=== PATIENT | female | born 1970 | race Caucasian/White ===

== ENCOUNTER → 2020-04-26 18:33 | Outpatient (CLI) | payer OTHER, SELFPAY ==
--- NOTE | 2020-04-26 | DI.MRI.S_ITS ---
PROCEDURE: MR BRAIN (IAC) WWO CON INDICATIONS: Headache TECHNIQUE: Noncontrast sagittal T1 spin echo, axial FLAIR, axial gradient echo, axial diffusion and ADC through the brain. Axial thin-slice 3D CISS, coronal TruFISP, axial T1 spin echo with fat saturation through the internal auditory canals. After the administration of contrast, thin slice axial and coronal T1 spin echo with fat saturation through the internal auditory canals, and axial T1 spin echo with fat saturation through the brain. COMPARISON: None. FINDINGS: Image quality: Excellent. Cerebellopontine angles: No cerebellopontine angle masses. Inner ear structures appear normally formed. No suspicious enhancement in the internal auditory canal or along the course of the 7th cranial nerve. CSF spaces: Ventricles are normal in size and shape. No extra-axial fluid collections. Basal cisterns are patent. Brain: No intracranial bleeds or mass effects. Rader-white matter interface is intact. No abnormal intracranial enhancement. Diffusion weighted images demonstrate no acute ischemic insults. Brainstem appears normal. Right cerebellar tonsils project approximately 11 millimeters in left cerebellar tonsils project approximately 6 millimeters below the basion-opisthion line. Visualized cervical spinal cord is normal in appearance without evidence of syrinx. Normal intravascular flow voids are present. Skull and face: Calvarial marrow signal is normal. Orbits appear normal. Sinuses: Sinuses and mastoids are clear. IMPRESSION: 1. No abnormal intracranial mass or mass effect. 2. No suspicious postcontrast enhancement. 3. Chiari I malformation. Dictated by: Karen Nath MD, PhD on 04/27/2020 at 13:01 Approved by: Karen Nath MD, PhD on 04/27/2020 at 13:06
== END ==
PROVIDERS: PCP Family Medicine; Referring Provider Family Medicine; Visit Provider Family Medicine
DX: R51 Headache (principal); G93.5 Compression of brain
CPT/HCPCS: 70553; A9579

== ENCOUNTER → 2021-04-01 10:28 | Outpatient (CLI) | payer OTHER, SELFPAY ==
[2021-04-01 11:17] LABS: COVID19 -Nasal RAPID Negative (Negative)
== END ==
PROVIDERS: PCP Family Medicine; Visit Provider Surgery
DX: Z20.822 Contact with and (suspected) exposure to COVID-19 (principal)
CPT/HCPCS: 87635; C9803

== ENCOUNTER 2021-04-04 06:33 | Day surgery (SDC) | payer OTHER, SELFPAY ==
[2021-04-04 07:10] VITALS: BP 114/74; PULSE 71; RESP 16; TEMP 36.3; O2SAT 100; BMI 28.3
[2021-04-04] MEDS: LACTATED RINGERS 1,000 ML 200 ML IV (07:30)
--- NOTE | 2021-04-04 07:42 | PM.HP.1 ---
History of Present Illness History of Present Illness Date Patient Seen: 04/04/21 Time Patient Seen: 07:42 Chief complaint: SDC Narrative: The patient presents for colorectal sreening. They have never had any previous examination for such. No personal or family history of colon cancer. On further history denies any recent gastrointestinal symptoms. No nausea, vomiting, abdominal pain, loss of appetite, unexplained weight loss, change in bowel habits, diarrhea, constipation, melena, hematochezia, or bright red blood per rectum. Patient History Family & Social History Social History: household members spouse Tobacco & Substance use: Smoking Status Never smoker alcohol intake current alcohol intake frequency 3 or more drinks per day Substance Use Type does not use Meds Home Medications and Allergies Allergies Allergy/AdvReac Type Severity Reaction Status Date / Time nitrofurantoin AdvReac Verified 04/04/21 07:07 [From Macrobid] Review of Systems Review of Systems ROS: Yes All systems reviewed with the patient and are negative except as otherwise documented Exam Vital Signs (past 8 hours): - 04/04/21 07:10 Temperature 97.4 F L Pulse Rate 71 Respiratory Rate 16 Blood Pressure 114/74 Pulse Oximetry 100 Oxygen Delivery Method Room Air Narrative Exam Narrative: GENERAL-well developed adult female, no acute distress HEENT-no scleral icterus, hearing intact NECK-no JVD, trachea midline CVS- regular rate, no peripheral edema RESP-unlabored respiratory effort, no audible wheezing GI-soft, nontender nondistended MSK-no cyanosis or clubbing, extremities without deformity SKIN-warm, dry NEURO-alert and oriented, no focal deficits PYSCH-Appropriate mood and affect Assessment & Plan Assessment & Plan narrative: The patient requires colorectal screening and colonoscopy is recommended. Technical details were discussed. Risks, benefits, alternatives explained. Risks including but not limited to myocardial infarction, aspiration, bleeding, pain, missed lesion, incomplete examination, need for further radiographic studies, colonic perforation, and need for major abdominal surgery were discussed. All questions were answered to their satisfaction, and they are in agreement with this plan.
[2021-04-04] MEDS: fentaNYL 250 MCG/5 ML INJ IV (07:54)
[2021-04-04] MEDS: MIDAZOLAM 5 MG/5 ML VIAL IV (07:55)
[2021-04-04 08:10] VITALS: BP 104/64; PULSE 64; RESP 10; TEMP 36.2; O2SAT 96
--- NOTE | 2021-04-04 08:10 | PM.OP.ENDO ---
Operative Date/Time/Diagnoses Date of procedure: 04/04/21 Time of procedure: 08:10 Pre-op diagnosis: Screening colonoscopy Post-op diagnosis: same Procedure & Clinicians Study performed: Colonoscopy Same procedure as scheduled: Yes Indications: Screening Surgeon: Vidal Mitchell Procedure Notes Procedure in detail: Medications: Conscious sedation using 6 mg IV midazolam and 150 mcg IV of fentanyl The history and physical was performed/updated and the patient is ASA class is 1. The procedure was discussed in detail with the patient. Potential risks complications including infection, bleeding, missed diagnosis, perforation, need for surgery, and were explained. Their questions were answered and informed consent was obtained. Patient was brought to the procedure room and placed standard monitoring equipment. The patient's vital signs were monitored continuously throughout the entire procedure. Prior to starting time-out was performed. The patient was placed in the left lateral recumbent position. Procedural sedation was administered. Examination began with a thorough inspection of the perianal area there was no evidence of fissures, fistulae, external hemorrhoids or cutaneous malignancy. The colonoscopy scope was then placed into the anal canal and was advanced to the cecum, which was identified by the ileocecal valve, the appendiceal orifice and the confluence of the taenia. The scope was then slowly withdrawn examining colon thoroughly in all directions, irrigating it of any residual stool. 1. No masses polyps 2. Normal healthy appearing colon The patient tolerated the procedure well. They will be discharged once criteria are met. The prep was of good/excellent quality. The withdrawl time was 7 minutes. The sedation time was 18 minutes. Specimen(s): none sent Complications: none Impression: Normal colonoscopy Post-procedure Recommendations: Colonscopy in 10 years Disposition: same day surgery
[2021-04-04 08:15] VITALS: BP 99/60; PULSE 83; RESP 12; O2SAT 97
[2021-04-04 08:24] VITALS: BP 90/50; PULSE 74; RESP 13; O2SAT 97
[2021-04-04 08:33] VITALS: BP 106/69; PULSE 71; RESP 14; TEMP 36.4; O2SAT 98
== END 2021-04-04 08:50 | disposition home or self-care (01) ==
PROVIDERS: PCP Family Medicine; Referring Provider Surgery; Visit Provider Surgery
PROC: 0DJD8ZZ Inspection of Lower Intestinal Tract, Via Natural or Artificial Opening Endoscopic (ICD-10-PCS; CPT 45378; principal; 2021-04-04 07:45)
DX: Z12.11 Encounter for screening for malignant neoplasm of colon (principal)
CPT/HCPCS: 45378; 99152; J2250; J3010

== ENCOUNTER 2021-10-06 07:30 | Outpatient (RCR) | payer OTHER, SELFPAY ==
--- NOTE | 2021-07-27 11:08 | PT.OIE ---
Current Diagnoses Pain in left shoulder (07/27/21) Visit Care Team Role Provider Type Yeimy Crystal DO Attending Provider Non-Staff Family Provider Primary Care Provider Referring Provider Specialty: Medical Address: [address] [place] [address], [facility] Email: Physical Therapy Initial Evaluation PT-OP-A Visit Information Start: 07/21/21 15:56 Freq: Status: Active Protocol: Document 07/27/21 07:30 AMB (Rec: 07/31/21 10:48 AMB [email or web address]) Out-Patient Physical Therapy Visit Information Visit Information Visit Type Initial Evaluation Visit Start Time 07:30 Visit Stop Time 08:15 Total Visit Minutes 45 Visit Number 1 PT-OP-B Current Condition Start: 07/21/21 15:56 Freq: Status: Active Protocol: Document 07/27/21 07:30 AMB (Rec: 07/27/21 07:41 AMB [id number]) Current Condition History of Current Condition Onset Date January 2021 Current Complaints Left shoulder pain History of Current Condition In January, Carly was doing a lot of yardwork and the left arm pain started and hasn't really been getting better. She tries to sleep on her back because sleeping on the side, reaching to the side and behind are all painful. Pain always a 2/10, then with activity increases to 5/10. Pain is burning/ can be sharp. Denies n/t or pain with moving neck. Treatment Goals Patient/Caregiver Goals Be able to return to normal activities without shoulder pain Prior Functional Status Baseline Function- ADL's Independent Baseline Function- Mobility Independent PT-OP-C Subjective Start: 07/21/21 15:56 Freq: Status: Active Protocol: Document 07/27/21 07:30 AMB (Rec: 07/31/21 10:55 AMB [email or web address]) Patient Questionnaires Quick Dash- Upper Extremity Quick Dash UE Score 25 Quick Dash UE Impairment 20 to 39% Impaired (Score 20- 39) OP-PT Pain Assessment Comments Pain Comments Left shoulder and into the uper arm especially at night PT-OP-J Posture/Palpation/Skin Start: 07/21/21 15:56 Freq: Status: Active Protocol: Document 07/27/21 07:30 AMB (Rec: 07/31/21 10:55 AMB [email or web address]) Posture Evaluation Comments Posture Comments Mild forward shoulders Palpation Assessment Location L shoulder Palpation Details Pain at medial and lateral border of scapula, and over long head of biceps tendon PT-OP-K Range of Motion Start: 07/21/21 15:56 Freq: Status: Active Protocol: Document 07/27/21 07:30 AMB (Rec: 07/31/21 10:55 AMB [email or web address]) Shoulder Goniometric Range of Motion Shoulder Right Active Shoulder ROM WFL Yes Testing Position Sitting Left Active Testing Position Sitting Flexion 150 Extension 35 Abduction 95 External Rotation at 45 degrees 5 Abduction Internal Rotation Behind Back (text) sacrum Comments pain wiht abduction and extension PT-OP-L Special Tests Start: 07/21/21 15:56 Freq: Status: Active Protocol: Document 07/27/21 07:30 AMB (Rec: 07/31/21 10:55 AMB [email or web address]) Special Tests Shoulder Special Tests Empty Can Test Results - Lift-Off Rotator Cuff Comments reduced range of motion, but able to perform Hornblowers Sign Test Results - PT-OP-M Strength Start: 07/21/21 15:56 Freq: Status: Active Protocol: Document 07/27/21 07:30 AMB (Rec: 07/31/21 10:55 AMB [email or web address]) Shoulder Strength Shoulder Manual Muscle Testing Left Flexion 4+ Good+ Extension 4 Good Abduction (C5) 4 Good External Rotation 4 Good Internal Rotation 4+ Good+ PT-OP-Q Treatments Start: 07/21/21 15:56 Freq: Status: Active Protocol: Document 07/27/21 07:30 AMB (Rec: 07/31/21 10:55 AMB [email or web address]) Therapeutic Exercises Supine Exercises AAROM Supine Exercise Name with wand Comments flexion Standing Exercises isometrics Side left Comments extension and IR PT-OP-T Assessment and Plan Start: 07/21/21 15:56 Freq: Status: Active Protocol: Document 07/27/21 07:30 AMB (Rec: 07/31/21 11:08 AMB [email or web address]) Physical Therapy Assessment Rehab Potential Rehabilitation Potential Good Evaluation Complexity Number of Personal Factors/Comorbidities 0 Number of Body Systems Impaired 4 or More Clinical Presentation at Evaluation Stable Impairments Impairments Functional Activities,Pain,ROM ,Strength Goals Four Impairment HEP Short Term Goal (STG) Carly will be independent and consistent with a strengthening and ROM HEP. STG Duration 4 weeks Two Impairment pain Short Term Goal (STG) Carly will do all upper body dressing without an increase in pain. STG Duration 4 weeks Jail Goal (LTG) Carly will roll over in bed without waking due to pain. LTG Duration 8 weeks One Impairment ROM Short Term Goal (STG) Carly will improve her left shoulder AROM to 170 degrees in flexion. STG Duration 4 weeks Jail Goal (LTG) Carly will improve her left shoulder AROM to 140 degrees in abduction. LTG Duration 8 weeks Assessment Summary Assessment Carly attends physical therapy with left shoulder pain that has not improved since injury 6 months ago. She presents with restricted ROM especially in abduction and ER and pain when moving the arm away from her body. Given her presentation rotator cuff vs biceps tendon vs labral pathology should be considered. She will benefit from physical therapy to instruct her in a gentle ROM and strengthening program so she can return to her prior level of function. Physical Therapy Plan Frequency and Duration Frequency of Treatment 2x/Week Duration of Treatment 8 weeks Plan of Care Start Date 07/27/21 Plan of Care End Date 10/05/21 Therapeutic Interventions Therapeutic Interventions Home Exercise Program,Joint Mobilizations,Manual Therapy, Neuromuscular Re-education, Self-Care/Home Management,Soft Tissue Mobilization, Therapeutic Activities, Therapeutic Exercises Modalities Cold Pack/Ice Massage,Electric Stimulation,Hot Packs, Ultrasound Next Visit Focus/Plan Next Note Type Treatment Note Next Visit Plan Progress isometrics and AAROM HEP
--- NOTE | 2021-07-27 11:09 | PT.OPPOC ---
Physical, Occupational & Speech Therapy At [facility] Current Diagnoses Pain in left shoulder (07/27/21) Visit Care Team Role Provider Type Yeimy Crystal DO Attending Provider Non-Staff Family Provider Primary Care Provider Referring Provider Specialty: Medical Address: [address] [place] [address], [id number] Email: Plan Of Care PT-OP-T Assessment and Plan Start: 07/21/21 15:56 Freq: Status: Active Protocol: Document 07/27/21 07:30 AMB (Rec: 07/31/21 11:08 AMB [email or web address]) Physical Therapy Assessment Rehab Potential Rehabilitation Potential Good Evaluation Complexity Number of Personal Factors/Comorbidities 0 Number of Body Systems Impaired 4 or More Clinical Presentation at Evaluation Stable Impairments Impairments Functional Activities,Pain,ROM ,Strength Goals Four Impairment HEP Short Term Goal (STG) Carly will be independent and consistent with a strengthening and ROM HEP. STG Duration 4 weeks Two Impairment pain Short Term Goal (STG) Carly will do all upper body dressing without an increase in pain. STG Duration 4 weeks Group Home Goal (LTG) Carly will roll over in bed without waking due to pain. LTG Duration 8 weeks One Impairment ROM Short Term Goal (STG) Carly will improve her left shoulder AROM to 170 degrees in flexion. STG Duration 4 weeks Group Home Goal (LTG) Carly will improve her left shoulder AROM to 140 degrees in abduction. LTG Duration 8 weeks Assessment Summary Assessment Carly attends physical therapy with left shoulder pain that has not improved since injury 6 months ago. She presents with restricted ROM especially in abduction and ER and pain when moving the arm away from her body. Given her presentation rotator cuff vs biceps tendon vs labral pathology should be considered. She will benefit from physical therapy to instruct her in a gentle ROM and strengthening program so she can return to her prior level of function. Physical Therapy Plan Frequency and Duration Frequency of Treatment 2x/Week Duration of Treatment 8 weeks Plan of Care Start Date 07/27/21 Plan of Care End Date 10/05/21 Therapeutic Interventions Therapeutic Interventions Home Exercise Program,Joint Mobilizations,Manual Therapy, Neuromuscular Re-education, Self-Care/Home Management,Soft Tissue Mobilization, Therapeutic Activities, Therapeutic Exercises Modalities Cold Pack/Ice Massage,Electric Stimulation,Hot Packs, Ultrasound Next Visit Focus/Plan Next Note Type Treatment Note Next Visit Plan Progress isometrics and AAROM HEP Plan of Care Dates Plan of Care Start Date 07/27/21 Plan of Care End Date 10/05/21 Electronically Signed by: Rachael Henson, PT 07/31/21 [id number] Please Sign and Return: I have reviewed this Plan of Care and certify that the skilled therapy services above are required to meet the patient?s needs. Physician Signature Date Printed Name and Credentials Clinical Instructor Signature Printed Name and Credentials
--- NOTE | 2021-08-04 09:17 | PT.OTN ---
Current Diagnoses Pain in left shoulder (08/04/21) Physical Therapy Treatment Note PT-OP-A Visit Information Start: 07/21/21 15:56 Freq: Status: Active Protocol: Document 08/04/21 07:30 AMB (Rec: 08/04/21 09:17 AMB [email or web address]) Out-Patient Physical Therapy Visit Information Visit Information Visit Type Treatment Note Visit Start Time 07:30 Visit Stop Time 08:25 Total Visit Minutes 55 Visit Number 2 PT-OP-B Current Condition Start: 07/21/21 15:56 Freq: Status: Active Protocol: Document 07/27/21 07:30 AMB (Rec: 07/27/21 07:41 AMB [id number]) Current Condition History of Current Condition Onset Date January 2021 Current Complaints Left shoulder pain History of Current Condition In January, Carly was doing a lot of yardwork and the left arm pain started and hasn't really been getting better. She tries to sleep on her back because sleeping on the side, reaching to the side and behind are all painful. Pain always a 2/10, then with activity increases to 5/10. Pain is burning/ can be sharp. Denies n/t or pain with moving neck. Treatment Goals Patient/Caregiver Goals Be able to return to normal activities without shoulder pain Prior Functional Status Baseline Function- ADL's Independent Baseline Function- Mobility Independent PT-OP-C Subjective Start: 07/21/21 15:56 Freq: Status: Active Protocol: Document 08/04/21 07:30 AMB (Rec: 08/04/21 09:17 AMB [email or web address]) OP-PT Subjective Patient Comments Patient Comments Taylor states the flexion AAROM is feeling good. isometrics are a bit painful. PT-OP-J Posture/Palpation/Skin Start: 07/21/21 15:56 Freq: Status: Active Protocol: Document 07/27/21 07:30 AMB (Rec: 07/31/21 10:55 AMB [email or web address]) Posture Evaluation Comments Posture Comments Mild forward shoulders Palpation Assessment Location L shoulder Palpation Details Pain at medial and lateral border of scapula, and over long head of biceps tendon PT-OP-K Range of Motion Start: 07/21/21 15:56 Freq: Status: Active Protocol: Document 07/27/21 07:30 AMB (Rec: 07/31/21 10:55 AMB [email or web address]) Shoulder Goniometric Range of Motion Shoulder Right Active Shoulder ROM WFL Yes Testing Position Sitting Left Active Testing Position Sitting Flexion 150 Extension 35 Abduction 95 External Rotation at 45 degrees 5 Abduction Internal Rotation Behind Back (text) sacrum Comments pain wiht abduction and extension PT-OP-L Special Tests Start: 07/21/21 15:56 Freq: Status: Active Protocol: Document 07/27/21 07:30 AMB (Rec: 07/31/21 10:55 AMB [email or web address]) Special Tests Shoulder Special Tests Empty Can Test Results - Lift-Off Rotator Cuff Comments reduced range of motion, but able to perform Hornblowers Sign Test Results - PT-OP-M Strength Start: 07/21/21 15:56 Freq: Status: Active Protocol: Document 07/27/21 07:30 AMB (Rec: 07/31/21 10:55 AMB [email or web address]) Shoulder Strength Shoulder Manual Muscle Testing Left Flexion 4+ Good+ Extension 4 Good Abduction (C5) 4 Good External Rotation 4 Good Internal Rotation 4+ Good+ PT-OP-Q Treatments Start: 07/21/21 15:56 Freq: Status: Active Protocol: Document 08/04/21 07:30 AMB (Rec: 08/04/21 09:17 AMB [email or web address]) Therapeutic Exercises Supine Exercises AAROM Supine Exercise Name with wand Reps/Minutes 10 min Comments flexion, abduction , ER Sidelying Exercises 2 Sidelying Exercise Name abduction Reps/Minutes 2x10 Comments 0-45 degrees 1 Sidelying Exercise Name ER Reps/Minutes 2x10 Comments from abdomen to neutral Sitting Exercises 1 Sitting Exercise Name biceps curls Resistance 3-5# Reps/Minutes 2x10 Manual Therapy Treatment Soft Tissue Mobilization 1 Body Location L scapula Mobilization Type Myofascial Release,Sustained Pressure Intensity/Depth Moderate Body Position Supine PT-OP-T Assessment and Plan Start: 07/21/21 15:56 Freq: Status: Active Protocol: Document 08/04/21 07:30 AMB (Rec: 08/04/21 09:17 AMB [email or web address]) Physical Therapy Assessment Goals Four Impairment HEP Short Term Goal (STG) Carly will be independent and consistent with a strengthening and ROM HEP. STG Duration 4 weeks Two Impairment pain Short Term Goal (STG) Carly will do all upper body dressing without an increase in pain. STG Duration 4 weeks Metal Tester Goal (LTG) Carly will roll over in bed without waking due to pain. LTG Duration 8 weeks One Impairment ROM Short Term Goal (STG) Carly will improve her left shoulder AROM to 170 degrees in flexion. STG Duration 4 weeks Metal Tester Goal (LTG) Carly will improve her left shoulder AROM to 140 degrees in abduction. LTG Duration 8 weeks Assessment Summary Assessment Taylor is doing well with flexion, but has pain with abduction and ER- worst with ER, IR is more comfortable, but can tolerate ER to neutral . Physical Therapy Plan Next Visit Focus/Plan Next Visit Plan Follow up on AAROM and AROM ( ER), can add abduction AROM if tolerated in sidelying
--- NOTE | 2021-08-11 08:54 | PT.OTN ---
Current Diagnoses Pain in left shoulder (08/11/21) Physical Therapy Treatment Note PT-OP-A Visit Information Start: 07/21/21 15:56 Freq: Status: Active Protocol: Document 08/11/21 07:30 AMB (Rec: 08/11/21 08:38 AMB [id number]) Out-Patient Physical Therapy Visit Information Visit Information Visit Type Treatment Note Visit Start Time 07:30 Visit Stop Time 08:15 Total Visit Minutes 45 Visit Number 3 PT-OP-B Current Condition Start: 07/21/21 15:56 Freq: Status: Active Protocol: Document 07/27/21 07:30 AMB (Rec: 07/27/21 07:41 AMB [id number]) Current Condition History of Current Condition Onset Date January 2021 Current Complaints Left shoulder pain History of Current Condition In January, Carly was doing a lot of yardwork and the left arm pain started and hasn't really been getting better. She tries to sleep on her back because sleeping on the side, reaching to the side and behind are all painful. Pain always a 2/10, then with activity increases to 5/10. Pain is burning/ can be sharp. Denies n/t or pain with moving neck. Treatment Goals Patient/Caregiver Goals Be able to return to normal activities without shoulder pain Prior Functional Status Baseline Function- ADL's Independent Baseline Function- Mobility Independent PT-OP-C Subjective Start: 07/21/21 15:56 Freq: Status: Active Protocol: Document 08/11/21 07:30 AMB (Rec: 08/11/21 08:38 AMB [id number]) OP-PT Subjective Patient Comments Patient Comments Overall feels like she is getting stronger, but continues to have sharp pain if she weightbears through the arm like to push up from sitting. PT-OP-J Posture/Palpation/Skin Start: 07/21/21 15:56 Freq: Status: Active Protocol: Document 07/27/21 07:30 AMB (Rec: 07/31/21 10:55 AMB [email or web address]) Posture Evaluation Comments Posture Comments Mild forward shoulders Palpation Assessment Location L shoulder Palpation Details Pain at medial and lateral border of scapula, and over long head of biceps tendon PT-OP-K Range of Motion Start: 07/21/21 15:56 Freq: Status: Active Protocol: Document 07/27/21 07:30 AMB (Rec: 07/31/21 10:55 AMB [email or web address]) Shoulder Goniometric Range of Motion Shoulder Right Active Shoulder ROM WFL Yes Testing Position Sitting Left Active Testing Position Sitting Flexion 150 Extension 35 Abduction 95 External Rotation at 45 degrees 5 Abduction Internal Rotation Behind Back (text) sacrum Comments pain wiht abduction and extension PT-OP-L Special Tests Start: 07/21/21 15:56 Freq: Status: Active Protocol: Document 07/27/21 07:30 AMB (Rec: 07/31/21 10:55 AMB [email or web address]) Special Tests Shoulder Special Tests Empty Can Test Results - Lift-Off Rotator Cuff Comments reduced range of motion, but able to perform Hornblowers Sign Test Results - PT-OP-M Strength Start: 07/21/21 15:56 Freq: Status: Active Protocol: Document 07/27/21 07:30 AMB (Rec: 07/31/21 10:55 AMB [email or web address]) Shoulder Strength Shoulder Manual Muscle Testing Left Flexion 4+ Good+ Extension 4 Good Abduction (C5) 4 Good External Rotation 4 Good Internal Rotation 4+ Good+ PT-OP-Q Treatments Start: 07/21/21 15:56 Freq: Status: Active Protocol: Document 08/11/21 07:30 AMB (Rec: 08/11/21 08:38 AMB [id number]) Therapeutic Exercises Supine Exercises AAROM Supine Exercise Name with wand Reps/Minutes 10 min Comments flexion, abduction , ER Standing Exercises shldr ext t band Resistance #1 t band Reps/Minutes 2x10 t band rows Resistance #1 t band Reps/Minutes 2x10 Manual Therapy Treatment Joint Mobilizations 1 Joint AP and inferior glide Grade III Taping 1 Body Location L shoulder Type of Tape Kinesio Tape Comments Y and I to retract scapula and for GH support Manual Techniques PROM Type with distraction Comments pain with abduction, tolerated flexion, scaption well. PT-OP-T Assessment and Plan Start: 07/21/21 15:56 Freq: Status: Active Protocol: Document 08/11/21 07:30 AMB (Rec: 08/11/21 08:38 AMB [id number]) Physical Therapy Assessment Assessment Summary Assessment Taylor tolerated AROM with joint distraction well, as well as t band exercises. She was sore at the end of treatment. Physical Therapy Plan Next Visit Focus/Plan Next Note Type Treatment Note Next Visit Plan Follow up on t band rows and extension
--- NOTE | 2021-08-16 10:55 | PT.OTN ---
Current Diagnoses Pain in left shoulder (08/16/21) Physical Therapy Treatment Note PT-OP-A Visit Information Start: 07/21/21 15:56 Freq: Status: Active Protocol: Document 08/16/21 07:30 AMB (Rec: 08/16/21 08:15 AMB [id number]) Out-Patient Physical Therapy Visit Information Visit Information Visit Type Treatment Note Visit Start Time 07:30 Visit Stop Time 08:15 Total Visit Minutes 45 Visit Number 4 PT-OP-B Current Condition Start: 07/21/21 15:56 Freq: Status: Active Protocol: Document 07/27/21 07:30 AMB (Rec: 07/27/21 07:41 AMB [id number]) Current Condition History of Current Condition Onset Date January 2021 Current Complaints Left shoulder pain History of Current Condition In January, Carly was doing a lot of yardwork and the left arm pain started and hasn't really been getting better. She tries to sleep on her back because sleeping on the side, reaching to the side and behind are all painful. Pain always a 2/10, then with activity increases to 5/10. Pain is burning/ can be sharp. Denies n/t or pain with moving neck. Treatment Goals Patient/Caregiver Goals Be able to return to normal activities without shoulder pain Prior Functional Status Baseline Function- ADL's Independent Baseline Function- Mobility Independent PT-OP-C Subjective Start: 07/21/21 15:56 Freq: Status: Active Protocol: Document 08/16/21 07:30 AMB (Rec: 08/16/21 10:55 AMB [email or web address]) OP-PT Subjective Patient Comments Patient Comments Taylor states she is improving, continued shoulder pain with extension, but external rotation is coming along. PT-OP-J Posture/Palpation/Skin Start: 07/21/21 15:56 Freq: Status: Active Protocol: Document 07/27/21 07:30 AMB (Rec: 07/31/21 10:55 AMB [email or web address]) Posture Evaluation Comments Posture Comments Mild forward shoulders Palpation Assessment Location L shoulder Palpation Details Pain at medial and lateral border of scapula, and over long head of biceps tendon PT-OP-K Range of Motion Start: 07/21/21 15:56 Freq: Status: Active Protocol: Document 07/27/21 07:30 AMB (Rec: 07/31/21 10:55 AMB [email or web address]) Shoulder Goniometric Range of Motion Shoulder Right Active Shoulder ROM WFL Yes Testing Position Sitting Left Active Testing Position Sitting Flexion 150 Extension 35 Abduction 95 External Rotation at 45 degrees 5 Abduction Internal Rotation Behind Back (text) sacrum Comments pain wiht abduction and extension PT-OP-L Special Tests Start: 07/21/21 15:56 Freq: Status: Active Protocol: Document 07/27/21 07:30 AMB (Rec: 07/31/21 10:55 AMB [email or web address]) Special Tests Shoulder Special Tests Empty Can Test Results - Lift-Off Rotator Cuff Comments reduced range of motion, but able to perform Hornblowers Sign Test Results - PT-OP-M Strength Start: 07/21/21 15:56 Freq: Status: Active Protocol: Document 07/27/21 07:30 AMB (Rec: 07/31/21 10:55 AMB [email or web address]) Shoulder Strength Shoulder Manual Muscle Testing Left Flexion 4+ Good+ Extension 4 Good Abduction (C5) 4 Good External Rotation 4 Good Internal Rotation 4+ Good+ PT-OP-Q Treatments Start: 07/21/21 15:56 Freq: Status: Active Protocol: Document 08/16/21 07:30 AMB (Rec: 08/16/21 10:55 AMB [email or web address]) Therapeutic Exercises Sitting Exercises forward table stretch Sitting Exercise Name on rolling stool Reps/Minutes 30x3 cameron Sitting Exercise Name flexion, scaption, then standing IR Reps/Minutes 3 min ea direction Standing Exercises 1 Standing Exercise Name modified plank Reps/Minutes 30x3 Comments on wall then on raised plinth shldr ER t band Resistance #1 t band Reps/Minutes 1x10 shldr ext t band Resistance #1 t band Reps/Minutes 2x10 t band rows Resistance #1 t band Reps/Minutes 2x10 PT-OP-T Assessment and Plan Start: 07/21/21 15:56 Freq: Status: Active Protocol: Document 08/16/21 07:30 AMB (Rec: 08/16/21 10:55 AMB [email or web address]) Physical Therapy Assessment Assessment Summary Assessment Taylor is going to be going on vacation and is hoping to be able to swim- discussed pt thinking of trying breaststroke. Overall pt continues to be stiff/painful at end range but throughout the day can progress her range of motion. Physical Therapy Plan Next Visit Focus/Plan Next Note Type Treatment Note Next Visit Plan Current HEP: T band rows, ER, ext. Modified plank on countertop/wall, foward table stretch, AAROM with dowel.
--- NOTE | 2021-08-25 08:20 | PT.OTN ---
Current Diagnoses Pain in left shoulder (08/25/21) Physical Therapy Treatment Note PT-OP-A Visit Information Start: 07/21/21 15:56 Freq: Status: Active Protocol: Document 08/25/21 07:31 SP (Rec: 08/25/21 08:24 SP [id number]) Out-Patient Physical Therapy Visit Information Visit Information Visit Type Treatment Note Visit Note LUIS Armijo attended and provided education under direct supervision and guidance of KEVIN Giron. Visit Start Time 07:31 Visit Stop Time 08:20 Total Visit Minutes 49 Visit Number 5 Number of TILER Visits 1 PT-OP-B Current Condition Start: 07/21/21 15:56 Freq: Status: Active Protocol: Document 07/27/21 07:30 AMB (Rec: 07/27/21 07:41 AMB [id number]) Current Condition History of Current Condition Onset Date January 2021 Current Complaints Left shoulder pain History of Current Condition In January, Carly was doing a lot of yardwork and the left arm pain started and hasn't really been getting better. She tries to sleep on her back because sleeping on the side, reaching to the side and behind are all painful. Pain always a 2/10, then with activity increases to 5/10. Pain is burning/ can be sharp. Denies n/t or pain with moving neck. Treatment Goals Patient/Caregiver Goals Be able to return to normal activities without shoulder pain Prior Functional Status Baseline Function- ADL's Independent Baseline Function- Mobility Independent PT-OP-C Subjective Start: 07/21/21 15:56 Freq: Status: Active Protocol: Document 08/25/21 07:31 SP (Rec: 08/25/21 08:24 SP [id number]) OP-PT Subjective Patient Comments Patient Comments Pt. indicated that she can't put her L arm behind her back, such as reaching into the back seat of a car. Good responses to K taping, want to reapply. PT-OP-J Posture/Palpation/Skin Start: 07/21/21 15:56 Freq: Status: Active Protocol: Document 07/27/21 07:30 AMB (Rec: 07/31/21 10:55 AMB [email or web address]) Posture Evaluation Comments Posture Comments Mild forward shoulders Palpation Assessment Location L shoulder Palpation Details Pain at medial and lateral border of scapula, and over long head of biceps tendon PT-OP-K Range of Motion Start: 07/21/21 15:56 Freq: Status: Active Protocol: Document 07/27/21 07:30 AMB (Rec: 07/31/21 10:55 AMB [email or web address]) Shoulder Goniometric Range of Motion Shoulder Right Active Shoulder ROM WFL Yes Testing Position Sitting Left Active Testing Position Sitting Flexion 150 Extension 35 Abduction 95 External Rotation at 45 degrees 5 Abduction Internal Rotation Behind Back (text) sacrum Comments pain wiht abduction and extension PT-OP-L Special Tests Start: 07/21/21 15:56 Freq: Status: Active Protocol: Document 07/27/21 07:30 AMB (Rec: 07/31/21 10:55 AMB [email or web address]) Special Tests Shoulder Special Tests Empty Can Test Results - Lift-Off Rotator Cuff Comments reduced range of motion, but able to perform Hornblowers Sign Test Results - PT-OP-M Strength Start: 07/21/21 15:56 Freq: Status: Active Protocol: Document 07/27/21 07:30 AMB (Rec: 07/31/21 10:55 AMB [email or web address]) Shoulder Strength Shoulder Manual Muscle Testing Left Flexion 4+ Good+ Extension 4 Good Abduction (C5) 4 Good External Rotation 4 Good Internal Rotation 4+ Good+ PT-OP-Q Treatments Start: 07/21/21 15:56 Freq: Status: Active Protocol: Document 08/25/21 07:31 SP (Rec: 08/25/21 08:24 SP [id number]) Therapeutic Exercises Sidelying Exercises 2 Sidelying Exercise Name abduction Side left Reps/Minutes 2x10 Comments 0-45 degrees AROM, 80 deg AAROM 1 Sidelying Exercise Name ER Side left Resistance AROM Reps/Minutes 2x10 Comments from abdomen to neutral Sitting Exercises cameron Sitting Exercise Name flexion, scaption Side left Resistance AROM Equipment Used Overhead cameron Comments Pt. limited to about 100 flexion, but has approx 140 scaption Standing Exercises Pendulum Side left Equipment Used R UE supported Reps/Minutes 1 minute Comments AP, lateral, clockwise, counter clockwise Wall slides flex/ scaption Standing Exercise Name reviewed HEP Side left Resistance AROM Equipment Used Wall Reps/Minutes 3x30 flexion, 1x 30 scaption Comments Cues for hand crawling up wall , scaption within painfree-min discomft range shldr IR towel stretch Side left Resistance AROM Equipment Used towel- initiated across pelvis Reps/Minutes 5x 20 Comments Cues to stretch lateral, then superiorly, to keep shldr level shldr ext t band Side bilateral Resistance L1 Reps/Minutes 10x Comments Cues for straight elbows t band rows Side bilateral Resistance L1 >L2>L3 TB Reps/Minutes 5x L1, 10x L2, x5 L3 Comments cues for distance and tensioning, core stab, squeezing scapulae together, Manual Therapy Treatment Soft Tissue Mobilization 1 Body Location L proximal bicep tendon, RTC tendons Mobilization Type Myofascial Release,Rolling, Sustained Pressure Intensity/Depth Moderate Body Position Sitting Comments pre cameron Joint Mobilizations 1 Joint L GH Jt Direction AP glides Grade II Body Position Sitting Taping 1 Body Location L shoulder Type of Tape Kinesio Tape Skin Inspection intact, normal color Comments Y and I to retract scapula and for GH support PT-OP-T Assessment and Plan Start: 07/21/21 15:56 Freq: Status: Active Protocol: Document 08/25/21 07:31 SP (Rec: 08/25/21 08:24 SP [id number]) Physical Therapy Assessment Goals Four Impairment HEP Short Term Goal (STG) Carly will be independent and consistent with a strengthening and ROM HEP. STG Duration 4 weeks Two Impairment pain Short Term Goal (STG) Carly will do all upper body dressing without an increase in pain. STG Duration 4 weeks Surgical Tech Goal (LTG) Carly will roll over in bed without waking due to pain. LTG Duration 8 weeks One Impairment ROM Short Term Goal (STG) Carly will improve her left shoulder AROM to 170 degrees in flexion. STG Duration 4 weeks Half-Way Goal (LTG) Carly will improve her left shoulder AROM to 140 degrees in abduction. LTG Duration 8 weeks Assessment Summary Assessment Pt improved in GH retracted/ depress, good understanding during HEP within painfree range. Improved in L shld IR with use of towel, wall slides with cues for scap relax as range increases with painfree- low discomfort tolerance to decrease compensations. Introduced pendulums for decreased discomfort with good response. Good muscle tiring sidelying L shld ER AROM cued within painfree range. Good response to K taping for GH proximal approximation with cues for self reapplication shown while on vacation next week. Physical Therapy Plan Frequency and Duration Frequency of Treatment 2x/Week Duration of Treatment 8 weeks Plan of Care Start Date 07/27/21 Plan of Care End Date 10/05/21 Therapeutic Interventions Therapeutic Interventions Home Exercise Program,Joint Mobilizations,Manual Therapy, Neuromuscular Re-education, Self-Care/Home Management,Soft Tissue Mobilization, Therapeutic Activities, Therapeutic Exercises Modalities Cold Pack/Ice Massage,Electric Stimulation,Hot Packs, Ultrasound Next Visit Focus/Plan Next Note Type Treatment Note Next Visit Plan Current HEP: stand: pendulum, T band rows, ext, wall slides, sidelying ER. Modified plank on countertop/wall, forward table stretch, AAROM with dowel ER and IR behind back.
--- NOTE | 2021-09-06 09:42 | PT.OTN ---
Current Diagnoses Pain in left shoulder (09/06/21) Physical Therapy Treatment Note PT-OP-A Visit Information Start: 07/21/21 15:56 Freq: Status: Active Protocol: Document 09/06/21 07:30 AMB (Rec: 09/06/21 09:42 AMB [email or web address]) Out-Patient Physical Therapy Visit Information Visit Information Visit Type Treatment Note Visit Start Time 07:30 Visit Stop Time 08:10 Total Visit Minutes 40 Visit Number 6 PT-OP-B Current Condition Start: 07/21/21 15:56 Freq: Status: Active Protocol: Document 07/27/21 07:30 AMB (Rec: 07/27/21 07:41 AMB [id number]) Current Condition History of Current Condition Onset Date January 2021 Current Complaints Left shoulder pain History of Current Condition In January, Carly was doing a lot of yardwork and the left arm pain started and hasn't really been getting better. She tries to sleep on her back because sleeping on the side, reaching to the side and behind are all painful. Pain always a 2/10, then with activity increases to 5/10. Pain is burning/ can be sharp. Denies n/t or pain with moving neck. Treatment Goals Patient/Caregiver Goals Be able to return to normal activities without shoulder pain Prior Functional Status Baseline Function- ADL's Independent Baseline Function- Mobility Independent PT-OP-C Subjective Start: 07/21/21 15:56 Freq: Status: Active Protocol: Document 09/06/21 07:30 AMB (Rec: 09/06/21 09:42 AMB [email or web address]) OP-PT Subjective Patient Comments Patient Comments Pt was able to swim (modifed) while on vacation and that felt really good. PT-OP-J Posture/Palpation/Skin Start: 07/21/21 15:56 Freq: Status: Active Protocol: Document 07/27/21 07:30 AMB (Rec: 07/31/21 10:55 AMB [email or web address]) Posture Evaluation Comments Posture Comments Mild forward shoulders Palpation Assessment Location L shoulder Palpation Details Pain at medial and lateral border of scapula, and over long head of biceps tendon PT-OP-K Range of Motion Start: 07/21/21 15:56 Freq: Status: Active Protocol: Document 07/27/21 07:30 AMB (Rec: 07/31/21 10:55 AMB [email or web address]) Shoulder Goniometric Range of Motion Shoulder Right Active Shoulder ROM WFL Yes Testing Position Sitting Left Active Testing Position Sitting Flexion 150 Extension 35 Abduction 95 External Rotation at 45 degrees 5 Abduction Internal Rotation Behind Back (text) sacrum Comments pain wiht abduction and extension PT-OP-L Special Tests Start: 07/21/21 15:56 Freq: Status: Active Protocol: Document 07/27/21 07:30 AMB (Rec: 07/31/21 10:55 AMB [email or web address]) Special Tests Shoulder Special Tests Empty Can Test Results - Lift-Off Rotator Cuff Comments reduced range of motion, but able to perform Hornblowers Sign Test Results - PT-OP-M Strength Start: 07/21/21 15:56 Freq: Status: Active Protocol: Document 07/27/21 07:30 AMB (Rec: 07/31/21 10:55 AMB [email or web address]) Shoulder Strength Shoulder Manual Muscle Testing Left Flexion 4+ Good+ Extension 4 Good Abduction (C5) 4 Good External Rotation 4 Good Internal Rotation 4+ Good+ PT-OP-Q Treatments Start: 07/21/21 15:56 Freq: Status: Active Protocol: Document 09/06/21 07:30 AMB (Rec: 09/06/21 09:42 AMB [email or web address]) Therapeutic Exercises Sidelying Exercises open book Reps/Minutes 10 2 Sidelying Exercise Name abduction Side left Reps/Minutes 2x10 Comments 0-100 1 Sidelying Exercise Name ER Side left Resistance AROM Reps/Minutes 2x10 Comments from abdomen to neutral Standing Exercises 2 Standing Exercise Name standing pec stretch Comments modifying level of abduction for comfort t band rows Side bilateral Resistance L3 TB Reps/Minutes x5 L3 Comments cues for distance and tensioning, core stab, squeezing scapulae together, Manual Therapy Treatment Soft Tissue Mobilization 1 Body Location L proximal bicep tendon, RTC tendons Mobilization Type Myofascial Release,Rolling, Sustained Pressure Intensity/Depth Moderate Body Position Sidelying Joint Mobilizations 2 Joint scapulothoracic Comments all planes 1 Joint L GH Jt Direction AP glides Grade II Body Position Supine PT-OP-T Assessment and Plan Start: 07/21/21 15:56 Freq: Status: Active Protocol: Document 09/06/21 07:30 AMB (Rec: 09/06/21 09:42 AMB [email or web address]) Physical Therapy Assessment Assessment Summary Assessment Carly did well with new exercises, came in with 80 degrees of abduction and left with 113 degrees. Encouraged stretching throughout the day so that she can keep range and not stiffen as much. Physical Therapy Plan Next Visit Focus/Plan Next Note Type Treatment Note Next Visit Plan Current HEP: stand: pendulum, T band rows, ext, wall slides, sidelying ER. Modified plank on countertop/wall, forward table stretch, AAROM with dowel ER and IR behind back, open book, standing pec stretch.
--- NOTE | 2021-09-13 16:00 | PT.OTN ---
Current Diagnoses Pain in left shoulder (09/13/21) Physical Therapy Treatment Note PT-OP-A Visit Information Start: 07/21/21 15:56 Freq: Status: Active Protocol: Document 09/13/21 07:30 AMB (Rec: 09/13/21 16:00 AMB [email or web address]) Out-Patient Physical Therapy Visit Information Visit Information Visit Type Treatment Note Visit Start Time 07:30 Visit Stop Time 08:15 Total Visit Minutes 45 Visit Number 7 PT-OP-B Current Condition Start: 07/21/21 15:56 Freq: Status: Active Protocol: Document 07/27/21 07:30 AMB (Rec: 07/27/21 07:41 AMB [id number]) Current Condition History of Current Condition Onset Date January 2021 Current Complaints Left shoulder pain History of Current Condition In January, Carly was doing a lot of yardwork and the left arm pain started and hasn't really been getting better. She tries to sleep on her back because sleeping on the side, reaching to the side and behind are all painful. Pain always a 2/10, then with activity increases to 5/10. Pain is burning/ can be sharp. Denies n/t or pain with moving neck. Treatment Goals Patient/Caregiver Goals Be able to return to normal activities without shoulder pain Prior Functional Status Baseline Function- ADL's Independent Baseline Function- Mobility Independent PT-OP-C Subjective Start: 07/21/21 15:56 Freq: Status: Active Protocol: Document 09/06/21 07:30 AMB (Rec: 09/06/21 09:42 AMB [email or web address]) OP-PT Subjective Patient Comments Patient Comments Pt was able to swim (modifed) while on vacation and that felt really good. PT-OP-J Posture/Palpation/Skin Start: 07/21/21 15:56 Freq: Status: Active Protocol: Document 07/27/21 07:30 AMB (Rec: 07/31/21 10:55 AMB [email or web address]) Posture Evaluation Comments Posture Comments Mild forward shoulders Palpation Assessment Location L shoulder Palpation Details Pain at medial and lateral border of scapula, and over long head of biceps tendon PT-OP-K Range of Motion Start: 07/21/21 15:56 Freq: Status: Active Protocol: Document 07/27/21 07:30 AMB (Rec: 07/31/21 10:55 AMB [email or web address]) Shoulder Goniometric Range of Motion Shoulder Right Active Shoulder ROM WFL Yes Testing Position Sitting Left Active Testing Position Sitting Flexion 150 Extension 35 Abduction 95 External Rotation at 45 degrees 5 Abduction Internal Rotation Behind Back (text) sacrum Comments pain wiht abduction and extension PT-OP-L Special Tests Start: 07/21/21 15:56 Freq: Status: Active Protocol: Document 07/27/21 07:30 AMB (Rec: 07/31/21 10:55 AMB [email or web address]) Special Tests Shoulder Special Tests Empty Can Test Results - Lift-Off Rotator Cuff Comments reduced range of motion, but able to perform Hornblowers Sign Test Results - PT-OP-M Strength Start: 07/21/21 15:56 Freq: Status: Active Protocol: Document 07/27/21 07:30 AMB (Rec: 07/31/21 10:55 AMB [email or web address]) Shoulder Strength Shoulder Manual Muscle Testing Left Flexion 4+ Good+ Extension 4 Good Abduction (C5) 4 Good External Rotation 4 Good Internal Rotation 4+ Good+ PT-OP-Q Treatments Start: 07/21/21 15:56 Freq: Status: Active Protocol: Document 09/13/21 07:30 AMB (Rec: 09/13/21 16:00 AMB [email or web address]) Therapeutic Exercises Sidelying Exercises open book Reps/Minutes 10 Standing Exercises 3 Standing Exercise Name PNF diagonals Reps/Minutes 2x10 Comments #2 tband 2 Standing Exercise Name standing pec stretch Comments modifying level of abduction for comfort shldr ext t band Side bilateral Resistance L3 Reps/Minutes 10x Comments Cues for straight elbows t band rows Side bilateral Resistance L3 TB Reps/Minutes x5 L3 Comments cues for distance and tensioning, core stab, squeezing scapulae together, Manual Therapy Treatment Manual Techniques PROM Type with distraction Comments focused on abduction and ER PT-OP-T Assessment and Plan Start: 07/21/21 15:56 Freq: Status: Active Protocol: Document 09/13/21 07:31 AMB (Rec: 09/13/21 08:03 AMB [id number]) Physical Therapy Assessment Goals Four Impairment HEP Short Term Goal (STG) Carly will be independent and consistent with a strengthening and ROM HEP. STG Duration 4 weeks Two Impairment pain Short Term Goal (STG) Carly will do all upper body dressing without an increase in pain. STG Duration 4 weeks Mcfp Goal (LTG) Carly will roll over in bed without waking due to pain. LTG Duration 8 weeks One Impairment ROM Short Term Goal (STG) Carly will improve her left shoulder AROM to 170 degrees in flexion. STG Duration 4 weeks Mcfp Goal (LTG) Carly will improve her left shoulder AROM to 140 degrees in abduction. LTG Duration 8 weeks Assessment Summary Assessment Modified HEP to reduce exercises that were too easy. Added more strengthening, still limited in abduction, but progressing and pain is decreasing so pt can tolerate more now. Physical Therapy Plan Next Visit Focus/Plan Next Note Type Treatment Note Next Visit Plan Current HEP: stand: T band rows, ext, wall slides, sidelying ER. full plank on floor, forward table stretch, AAROM with dowel ER and IR behind back, open book, standing pec stretch, pnf diagonals with T band, flexion with 5# supine.
--- NOTE | 2021-09-22 08:45 | PT-OP ANOTE ---
Pt no showed appt, called and left voicemail confirming next appointment.
--- NOTE | 2021-09-30 09:35 | PT.OTN ---
Current Diagnoses Pain in left shoulder (09/30/21) Physical Therapy Treatment Note PT-OP-A Visit Information Start: 07/21/21 15:56 Freq: Status: Active Protocol: Document 09/30/21 07:30 AMB (Rec: 09/30/21 09:34 AMB [id number]) Out-Patient Physical Therapy Visit Information Visit Information Visit Type Treatment Note Visit Start Time 07:30 Visit Stop Time 08:15 Total Visit Minutes 45 Visit Number 8 PT-OP-B Current Condition Start: 07/21/21 15:56 Freq: Status: Active Protocol: Document 07/27/21 07:30 AMB (Rec: 07/27/21 07:41 AMB [id number]) Current Condition History of Current Condition Onset Date January 2021 Current Complaints Left shoulder pain History of Current Condition In January, Carly was doing a lot of yardwork and the left arm pain started and hasn't really been getting better. She tries to sleep on her back because sleeping on the side, reaching to the side and behind are all painful. Pain always a 2/10, then with activity increases to 5/10. Pain is burning/ can be sharp. Denies n/t or pain with moving neck. Treatment Goals Patient/Caregiver Goals Be able to return to normal activities without shoulder pain Prior Functional Status Baseline Function- ADL's Independent Baseline Function- Mobility Independent PT-OP-C Subjective Start: 07/21/21 15:56 Freq: Status: Active Protocol: Document 09/30/21 07:30 AMB (Rec: 09/30/21 09:34 AMB [id number]) OP-PT Subjective Patient Comments Patient Comments Pt overall has been feeling better, did try to lift 5# into flexion after last visit and that increased pain for about 3 days. PT-OP-J Posture/Palpation/Skin Start: 07/21/21 15:56 Freq: Status: Active Protocol: Document 07/27/21 07:30 AMB (Rec: 07/31/21 10:55 AMB [id number]) Posture Evaluation Comments Posture Comments Mild forward shoulders Palpation Assessment Location L shoulder Palpation Details Pain at medial and lateral border of scapula, and over long head of biceps tendon PT-OP-K Range of Motion Start: 07/21/21 15:56 Freq: Status: Active Protocol: Document 07/27/21 07:30 AMB (Rec: 07/31/21 10:55 AMB [email or web address]) Shoulder Goniometric Range of Motion Shoulder Right Active Shoulder ROM WFL Yes Testing Position Sitting Left Active Testing Position Sitting Flexion 150 Extension 35 Abduction 95 External Rotation at 45 degrees 5 Abduction Internal Rotation Behind Back (text) sacrum Comments pain wiht abduction and extension PT-OP-L Special Tests Start: 07/21/21 15:56 Freq: Status: Active Protocol: Document 07/27/21 07:30 AMB (Rec: 07/31/21 10:55 AMB [email or web address]) Special Tests Shoulder Special Tests Empty Can Test Results - Lift-Off Rotator Cuff Comments reduced range of motion, but able to perform Hornblowers Sign Test Results - PT-OP-M Strength Start: 07/21/21 15:56 Freq: Status: Active Protocol: Document 07/27/21 07:30 AMB (Rec: 07/31/21 10:55 AMB [email or web address]) Shoulder Strength Shoulder Manual Muscle Testing Left Flexion 4+ Good+ Extension 4 Good Abduction (C5) 4 Good External Rotation 4 Good Internal Rotation 4+ Good+ PT-OP-Q Treatments Start: 07/21/21 15:56 Freq: Status: Active Protocol: Document 09/30/21 07:30 AMB (Rec: 09/30/21 09:34 AMB [id number]) Therapeutic Exercises Sidelying Exercises open book Reps/Minutes 10 Sitting Exercises cameron Sitting Exercise Name flexion, scaption Side left Resistance AROM Equipment Used Overhead cameron Standing Exercises 4 Standing Exercise Name shoulder IR tband Resistance #2 Reps/Minutes 2x10 2 Standing Exercise Name standing pec stretch Comments modifying level of abduction for comfort Wall slides flex/ scaption Standing Exercise Name reviewed HEP Side left Resistance AROM Equipment Used Wall Reps/Minutes 3x30 flexion, 1x 30 scaption Comments Cues for hand crawling up wall , scaption within painfree-min discomft range shldr ER t band Resistance #2 t band Reps/Minutes 1x10 shldr ext t band Side bilateral Resistance L3 Reps/Minutes 10x Comments Cues for straight elbows t band rows Side bilateral Resistance L3 TB Reps/Minutes x5 L3 Comments cues for distance and tensioning, core stab, squeezing scapulae together, Manual Therapy Treatment Manual Techniques PROM Type with distraction Comments focused on abduction and ER PT-OP-T Assessment and Plan Start: 07/21/21 15:56 Freq: Status: Active Protocol: Document 09/30/21 07:34 AMB (Rec: 09/30/21 08:48 AMB [id number]) Physical Therapy Assessment Goals Four Impairment HEP Short Term Goal (STG) Carly will be independent and consistent with a strengthening and ROM HEP. STG Duration 4 weeks Two Impairment pain Short Term Goal (STG) Carly will do all upper body dressing without an increase in pain. STG Duration 4 weeks Sow Manager Goal (LTG) Carly will roll over in bed without waking due to pain. LTG Duration 8 weeks One Impairment ROM Short Term Goal (STG) Carly will improve her left shoulder AROM to 170 degrees in flexion. STG Duration 4 weeks Sow Manager Goal (LTG) Carly will improve her left shoulder AROM to 140 degrees in abduction. LTG Duration 8 weeks Assessment Summary Assessment 155 flexion AROM, 120 abduction at beginning of session, improved to approx 150, but does have pain, restriction at end range. Physical Therapy Plan Next Visit Focus/Plan Next Note Type Treatment Note Next Visit Plan Current HEP:Today added band ER and IR. stand: T band rows, ext, wall slides, sidelying ER. full plank on floor, forward table stretch, AAROM with dowel ER and IR behind back, open book, standing pec stretch, pnf diagonals with T band, flexion with 5# supine.
--- NOTE | 2021-10-06 10:22 | PT.OTN ---
Current Diagnoses Pain in left shoulder (10/06/21) Physical Therapy Treatment Note PT-OP-A Visit Information Start: 07/21/21 15:56 Freq: Status: Active Protocol: Document 10/06/21 07:30 AMB (Rec: 10/06/21 07:42 AMB [id number]) Out-Patient Physical Therapy Visit Information Visit Information Visit Type Treatment Note Visit Start Time 07:30 Visit Stop Time 08:15 Total Visit Minutes 45 Visit Number 9 PT-OP-B Current Condition Start: 07/21/21 15:56 Freq: Status: Active Protocol: Document 07/27/21 07:30 AMB (Rec: 07/27/21 07:41 AMB [id number]) Current Condition History of Current Condition Onset Date January 2021 Current Complaints Left shoulder pain History of Current Condition In January, Carly was doing a lot of yardwork and the left arm pain started and hasn't really been getting better. She tries to sleep on her back because sleeping on the side, reaching to the side and behind are all painful. Pain always a 2/10, then with activity increases to 5/10. Pain is burning/ can be sharp. Denies n/t or pain with moving neck. Treatment Goals Patient/Caregiver Goals Be able to return to normal activities without shoulder pain Prior Functional Status Baseline Function- ADL's Independent Baseline Function- Mobility Independent PT-OP-C Subjective Start: 07/21/21 15:56 Freq: Status: Active Protocol: Document 10/06/21 07:30 AMB (Rec: 10/17/21 10:20 AMB [id number]) OP-PT Subjective Patient Comments Patient Comments Pt is feeling ready for discharge, she still has stiffness but her pain is much improved. PT-OP-J Posture/Palpation/Skin Start: 07/21/21 15:56 Freq: Status: Active Protocol: Document 07/27/21 07:30 AMB (Rec: 07/31/21 10:55 AMB [email or web address]) Posture Evaluation Comments Posture Comments Mild forward shoulders Palpation Assessment Location L shoulder Palpation Details Pain at medial and lateral border of scapula, and over long head of biceps tendon PT-OP-K Range of Motion Start: 07/21/21 15:56 Freq: Status: Active Protocol: Document 10/06/21 07:42 AMB (Rec: 10/06/21 07:54 AMB [id number]) Shoulder Goniometric Range of Motion Shoulder Left Active Flexion 162 Abduction 140 External Rotation at 45 degrees 40 Abduction Internal Rotation Behind Back (text) L3 PT-OP-L Special Tests Start: 07/21/21 15:56 Freq: Status: Active Protocol: Document 07/27/21 07:30 AMB (Rec: 07/31/21 10:55 AMB [email or web address]) Special Tests Shoulder Special Tests Empty Can Test Results - Lift-Off Rotator Cuff Comments reduced range of motion, but able to perform Hornblowers Sign Test Results - PT-OP-M Strength Start: 07/21/21 15:56 Freq: Status: Active Protocol: Document 07/27/21 07:30 AMB (Rec: 07/31/21 10:55 AMB [email or web address]) Shoulder Strength Shoulder Manual Muscle Testing Left Flexion 4+ Good+ Extension 4 Good Abduction (C5) 4 Good External Rotation 4 Good Internal Rotation 4+ Good+ PT-OP-Q Treatments Start: 07/21/21 15:56 Freq: Status: Active Protocol: Document 10/06/21 07:30 AMB (Rec: 10/17/21 10:20 AMB [id number]) Therapeutic Exercises Sidelying Exercises open book Reps/Minutes 10 2 Sidelying Exercise Name abduction AROM Reps/Minutes 20 Sitting Exercises cameron Sitting Exercise Name flexion, scaption Side left Resistance AROM Equipment Used Overhead cameron Standing Exercises 2 Standing Exercise Name standing pec stretch Comments modifying level of abduction for comfort Other Exercises 1 Other Exercise Name I, Y, T on ball Comments AROM PT-OP-T Assessment and Plan Start: 07/21/21 15:56 Freq: Status: Active Protocol: Document 10/06/21 08:15 AMB (Rec: 10/06/21 08:19 AMB [id number]) Physical Therapy Assessment Goals Four Impairment HEP Short Term Goal (STG) Carly will be independent and consistent with a strengthening and ROM HEP. STG Duration MET Two Impairment pain Short Term Goal (STG) Carly will do all upper body dressing without an increase in pain. STG Duration MET Half-Way Goal (LTG) Carly will roll over in bed without waking due to pain. LTG Duration MET One Impairment ROM Short Term Goal (STG) Carly will improve her left shoulder AROM to 170 degrees in flexion. STG Duration PROGRESS MADE 162 degrees Brickmason Supervisor Goal (LTG) Carly will improve her left shoulder AROM to 140 degrees in abduction. LTG Duration MET Assessment Summary Assessment Taylor's ROM is improved from eval, but continues to have limitations mariela into abduction . She feels very functional now, can dress and really do everything she wants to. Plans to continue exercises and will follow up with PCP if not feeling 100% by the spring when she is doing yardwork. Physical Therapy Plan Frequency and Duration Frequency of Treatment 1x/Week Duration of Treatment 1 week Plan of Care Start Date 10/05/21 Plan of Care End Date 10/12/21 Therapeutic Interventions Therapeutic Interventions Home Exercise Program,Joint Mobilizations,Manual Therapy, Neuromuscular Re-education, Self-Care/Home Management,Soft Tissue Mobilization, Therapeutic Activities, Therapeutic Exercises Modalities Cold Pack/Ice Massage,Electric Stimulation,Hot Packs, Ultrasound Discharge Physical Therapy Discharge Reasons Goals Met
== END 2021-11-15 08:47 ==
LOC: PHYS 07:30
PROVIDERS: Family Provider Family Medicine; PCP Family Medicine; Referring Provider Family Medicine; Visit Provider Family Medicine
DX: M25.512 Pain in left shoulder (principal)
CPT/HCPCS: 97110; 97140; 97161

== ENCOUNTER 2025-04-27 08:02 | Emergency (ER) | payer OTHER, SELFPAY ==
[2025-04-27] VITALS (12 sets, daily range): BP systolic 123–145; BP diastolic 65–82; PULSE 53–88; RESP 16–18; TEMP 36.4; O2SAT 97–100; BMI 21.5
--- NOTE | 2025-04-27 08:29 | DI.RAD.S_ITS ---
PROCEDURE: XR RIBS RT MIN 3V W CXR 1V INDICATIONS: glf TECHNIQUE: 3 views of the ribs were acquired, along with a single view chest. COMPARISON: None. FINDINGS: Surgical changes and devices: None. Bones and chest wall: Nondisplaced right 7th and 8th rib fractures. No suspicious bony lesions. Overlying soft tissues appear unremarkable. Lungs and pleura: No pleural effusions or pneumothorax. Lungs appear clear. Mediastinum: Mediastinal contours appear normal. Heart size is normal. IMPRESSION: Nondisplaced right 7th and 8th rib fractures. No pneumothorax. Dictated by: Chao Pyle M.D. on 04/27/2025 at 9:39 Approved by: Chao Pyle M.D. on 04/27/2025 at 9:47
--- NOTE | 2025-04-27 10:57 | ED.FALL ---
HPI - Fall General Chief Complaint: Fall Stated Complaint: Possible right side cracked ribs Time Seen by Provider: 04/27/25 08:41 Source: patient Mode of arrival: Ambulatory History of Present Illness HPI Narrative: 54-year-old female who couple nights ago got up late and was sitting on a higher chair for a higher table where she had a syncopal episode. The patient has pain on her right axillary region that worsened to the point of coming here to the ER. Patient denies any presyncopal symptoms or prodromal signs. Patient has no postictal state. This is her 1st syncopal episode ever. At this point the patient is asymptomatic with the exception of her right axillary region pain Related Data Previous Rx's ?Medication ?Instructions ?Recorded hydrocodone 5 mg-acetaminophen 325 1 tab PO Q4-6H PRN pain #20 tabs 04/27/25 mg tablet Allergies Allergy/AdvReac Type Severity Reaction Status Date / Time nitrofurantoin (From AdvReac Verified 04/27/25 08:20 Macrobid) Review of Systems Review of Systems ROS Unobtainable: All systems reviewed & are unremarkable except as noted in HPI and below Patient History Social History household members: spouse Smoking Status: Never smoker alcohol intake: current Smoking Status: Never smoker alcohol intake frequency: 3 or more drinks per day Exam Initial Vital Signs Initial Vital Signs: Vital Signs Temperature 97.6 F 04/27/25 08:19 Pulse Rate 88 04/27/25 08:19 Respiratory Rate 18 04/27/25 08:19 Blood Pressure 139/71 04/27/25 08:19 Pulse Oximetry 97 04/27/25 08:19 Oxygen Delivery Method Room Air 04/27/25 08:19 General: Healthy appearing, in no acute distress. Able to give a complete and coherent history. Well-nourished well-developed HEENT: Moist mucous membranes, normal sclera with reactive pupils, Neck: No JVD, supple Respiratory: Lungs are clear to auscultation, no wheezing no rales no rhonchi. Full and symmetrical air movement Cardiac: Regular rate and rhythm no murmurs no bruits, pain with palpation around right axillary region Abdomen: Soft, nontender, no rebound or guarding, no flank pain Skin: Warm and dry, no rashes Neurologic: Grossly neurologically intact with no obvious asymmetries or abnormalities Extremities: No trauma, well perfused Psych: Cooperative, appropriate insight and affect Course Course Course Narrative: Patient had a full syncopal workup including labs, echocardiogram, EKG that were all unremarkable and did not explain the source of her syncopal episode. Orders Ordered: ED Orders 04/27/25 11:57 CT head/brain wo con Stat 04/27/25 12:05 CBC Auto Diff [Complete Blood Count AUTO DIFF] Stat CMP [Comprehensive Metabolic Panel] Stat 04/27/25 12:42 Ammonia (NH3) Stat 04/27/25 13:05 UA dip [Urinalysis Screen (Dip Only)] Stat Discontinued Medications Ibuprofen (Ibuprofen 600 Mg Tablet) 600 mg PO Q6HR PRN PRN Reason: Fever/Mild Pain (1-3) Last Admin: 04/27/25 12:33 Dose: 600 mg Documented By: АНДРЕЙ Reevaluation(s) Reevaluation #1: The patient has been back at her baseline for a while now. Vital Signs Vital signs: Vital Signs - 8 hr 04/27/25 13:05 04/27/25 13:30 04/27/25 14:00 Pulse Rate 69 57 L 58 L Blood Pressure Pulse Oximetry 99 99 98 04/27/25 14:22 04/27/25 14:22 04/27/25 14:30 Pulse Rate 61 61 Blood Pressure 145/82 H Pulse Oximetry 98 98 04/27/25 14:30 Pulse Rate Blood Pressure 123/65 Pulse Oximetry MDM - Fall Differential Diagnosis Differential diagnosis: Likely syncope, compression fracture and concussion with loss of consciousness Condition is:: Well Controlled Lab Data 04/27/25 12:05 04/27/25 12:05 Labs: Lab Results 04/27/25 04/27/25 04/27/25 Range/Units 12:05 12:42 13:05 WBC 6.2 (4.5-11.0) X10^3/uL RBC 4.16 (4.0-5.2) X10^6/uL Hgb 13.2 (12.0-16.0) g/dL Hct 38.8 (36-46) % MCV 93.4 (80-100) fL MCH 31.6 (26-34) PG MCHC 33.9 (30-36) % RDW 12.8 (11.6-14.8) % Plt Count 195 (150-400) X10^3/uL Neut % (Auto) 52.9 (50-75) % Lymph % (Auto) 35.1 (25-40) % [place] % (Auto) 9.5 (3-14) % Eos % (Auto) 1.7 L (2-4) % Baso % (Auto) 0.8 (0-2) % Neut # (Auto) 3300 (5676-0888) /uL Lymph # (Auto) 2200 (0329-4746) /uL [place] # (Auto) 600 (0-900) /uL Eos # (Auto) 100 (0-450) /uL Baso # (Auto) 100 (0-100) /uL Sodium 139 (137-145) mmol/L Potassium 4.0 (3.4-5.1) mmol/L Chloride 105 (98-107) mmol/L Carbon Dioxide 28 (22-32) mmol/L BUN 14 (7-17) mg/dL Creatinine 0.71 (0.52-1.04) mg/dL Estimated GFR > 60 (>60) mL/min BUN/Creatinine Ratio 19.7 (6-22) Glucose 84 (70-99) mg/dL Calcium 9.2 (8.4-10.2) mg/dL Total Bilirubin 1.1 (0.2-1.3) mg/dL AST 34 (14-36) IU/L ALT 21 (<35) IU/L Alkaline Phosphatase 70 (38-126) U/L Ammonia < 9 L (9-30) umol/L Total Protein 7.4 (6.3-8.2) g/dL Albumin 4.4 (3.5-5.0) g/dL Globulin 3.0 (1.7-4.1) g/dL Albumin/Globulin Ratio 1.5 (1.0-2.8) Urine Color Yellow Urine Appearance Clear Urine pH 6.5 (4.5-8.0) Ur Specific [place] <=1.005 (1.000-1.035) Urine Protein Negative (Negative) Urine Glucose (UA) Negative (Negative) g/dL Urine Ketones Negative (NEGATIVE) Urine Occult Blood Negative (Negative) Urine Nitrate Negative (Negative) Urine Bilirubin Negative (NEGATIVE) Urine Urobilinogen 0.2 (0.2) E.U./dL Ur Leukocyte Esterase Negative (NEGATIVE) ECG Data Interpretation: EKG shows normal axis, normal rhythm, rate of 54 beats per minute, normal SC intervals, no STT wave changes MDM Narrative Medical decision making narrative: Based on her normal in EKG, echocardiogram, labs, it was deemed safe for her the be discharged home and follow up with her cellars supervisor for longer monitoring or further intervention. Patient's chest x-ray did show non displaced fractures of the right 7th and 8th rib which she was given some rib support with an abdominal binder and some pain meds. Discharge Plan Departure Patient Disposition: Home Clinical Impression: Syncope Qualifiers: Syncope type: unspecified Qualified Code(s): R55 - Syncope and collapse Multiple rib fractures Qualifiers: Encounter type: initial encounter Fracture type: closed Laterality: right Qualified Code(s): S22.41XA - Multiple fractures of ribs, right side, initial encounter for closed fracture Instructions: DI for Syncope in Adults (Fainting), Rib Fracture Activity Restrictions/Additional Instructions: Follow-up with cardiology for potential monitoring for a longer period of time. Come back to ER if having more episodes of syncope. Prescriptions: New hydrocodone-acetaminophen 5-325 mg tablet 1 tab PO Q4-6H PRN (Reason: pain) Qty: 20 0RF Referrals: Yeimy Crystal DO [Primary Care Provider, Medical] Stand Alone Forms: Patient Portal/API
--- NOTE | 2025-04-27 11:04 | DI.ECHO.S_ITS ---
[facility] : : [address] : : [place] : : [id number] : : Phone: [phone] Echocardiogram Report + + :Name: DEAN REYEZ Study Date: 04/27/2025 Height: 70 in : :[facility] ReadingLocation: Weight: 150 lb : : Gender: Female BSA: 1.8 m2 : :: 1970 Age: 54 yrs BP: 145/76 mmHg: :Reason For Study: SYNCOPE : :Ordering Physician: JIGAR DIAZ Performed By: Gabriella Rice : :Referring: BRITTNEY DIAZ : + + Interpretation Summary Normal both left and right ventricle size and systolic function. The ejection fraction is estimated to be 60-65%. No valvular abnormallity. Procedure: A two-dimensional transthoracic echocardiogram with color flow and Doppler was performed. The study quality was technically adequate. There is no prior echocardiogram noted for this patient. The heart rate ranged between 55-61 bpm during the study. Left Ventricle: The left ventricle is normal in size and wall thickness. The ejection fraction is estimated to be 60-65%. There are no focal wall motion abnormalities. Right Ventricle: The right ventricle grossly appears normal in size with probable normal systolic function. Atria: The left atrial size is normal. Right atrial size is normal. There is no Doppler evidence for an interatrial shunt. Mitral Valve: The mitral valve leaflets appear to open well. There is trace mitral regurgitation. Aortic Valve: The aortic valve is trileaflet. The aortic valve opens well. There is no aortic valve stenosis. No aortic regurgitation is present. Tricuspid Valve: The tricuspid valve leaflets are thin and pliable. There is trace tricuspid regurgitation. Pulmonary artery pressures cannot be estimated because of the lack of a measurable TR jet velocity. Pulmonic Valve: The pulmonic valve leaflets are thin and pliable; valve motion is normal. There is mild pulmonic regurgitation. Great Vessels: The aortic root is normal size. The dimensions of the ascending aorta are normal. The IVC is of normal diameter and collapses greater than 50% with a sniff. This suggests a low right atrial pressure of 3 mm Hg. Pericardium/ Pleura There is no pericardial effusion. There is no pleural effusion. MMode/2D Measurements & Calculations LVIDd: 4.4 cm LVOT diam: 2.0 cm LVIDs: 2.7 cm Ao root diam: 3.3 cm FS: 37.8 % asc Aorta Diam: 3.1 cm IVSd: 0.74 cm Ao Arch Diam (Prox Trans): 2.6 cm LVPWd: 0.74 cm LV moore. diameter/BSA (cm/m^2): 2.4 LV sys. diameter/BSA (cm/m^2): 1.5 LA A2 area: 16.3 cm2 RA long axis: 4.4 cm LA A4 area: 12.9 cm2 RA area: 9.4 cm2 LA length (vol): 4.2 cm RA vol: 17.1 ml LA vol: 42.5 ml RA : 9.3 ml/m2 LA vol index: 23.0 ml/m2 IVC diam: 1.6 cm RVD1 (basal): 2.1 cm RVD2 (mid): 1.6 cm TAPSE: 2.5 cm Doppler Measurements & Calculations Ao V2 max: 144.7 cm/sec LVOT Max Derick: 120.5 cm/sec Ao V2 mean: 101.5 cm/sec LV V1 max P.8 mmHg Ao max P.4 mmHg LV V1 VTI: 27.7 cm Ao mean P.5 mmHg INDIRA(I,D): 2.4 cm2 Ao V2 VTI: 35.0 cm INDIRA(V,D): 2.5 cm2 sev ratio: 0.79 INDIRA indexed to BSA (cm^2/m^2): 1.3 MV E max derick: 73.9 cm/sec PA V2 max: 90.0 cm/sec MV A max derick: 33.0 cm/sec PA V2 mean: 64.6 cm/sec MV E/A: 2.2 PA mean P.9 mmHg Med Peak E' Derick: 10.8 cm/sec PA pr(Accel): 11.6 mmHg E/E' med: 6.8 Lat Peak E' Derick: 12.9 cm/sec E/E' lat: 5.7 E/e' average: 6.3 MV dec time: 0.28 sec SV(LVOT): 84.3 ml Electronically signed by: True Menendez on Reading Physician:04/27/2025 02:07 PM
--- NOTE | 2025-04-27 11:11 | EKG_ITS ---
[id number] [address] Test Date: 2025-04-27 Pat Name: Carly Reyna Department: [facility] Room: Gender: Female Shield Cleaner: EVIN : 1970 Requested By: Order Number: [id number] Reading MD: Cesar Winters Measurements Intervals [place]oca Rate: 54 P: 77 IA: 162 QRS: 82 QRSD: 98 T: 56 QT: 470 QTc: 445 Interpretive Statements Sinus bradycardia Electronically Signed On 04-29-2025 13:46:24 PDT by Cesar Winters
--- NOTE | 2025-04-27 11:57 | DI.CT.S_ITS ---
PROCEDURE: CT HEAD/BRAIN WO CON INDICATIONS: sycnope/fall TECHNIQUE: Noncontrast 4.5 mm thick angled axial sections acquired from the foramen magnum to the vertex, with coronal and sagittal reformats. For radiation dose reduction, the following was used: automated exposure control, adjustment of mA and/or kV according to patient size. COMPARISON: [facility], MR, MR BRAIN (IAC) WWO CON, 04/26/2020, 18:42. FINDINGS: Image quality: Diagnostic. CSF spaces: Basal cisterns are patent. No extra-axial fluid collections. Ventricles are normal in size and shape. Brain: No midline shift. No intracranial mass effect or hemorrhage. Rader- white matter interface is normal. Skull and face: Calvarium and visualized facial bones are intact, without suspicious lesions. Sinuses: Visualized sinuses and mastoids are clear. IMPRESSION: No acute intracranial pathology. Dictated by: Simón Veras M.D. on 04/27/2025 at 12:32 Approved by: Simón Veras M.D. on 04/27/2025 at 12:32
[2025-04-27 12:21] LABS: Add Manual Diff / Slide Review NO; Hematocrit 38.8 % (36-46); Hemoglobin 13.2 g/dL (12.0-16.0); Lymphocytes Absolute Auto 2200 /uL (1100-4500); Mean Corpuscular HGB Conc 33.9 % (30-36); Mean Corpuscular Hemoglobin 31.6 PG (26-34); Mean Corpuscular Volume 93.4 fL (80-100); Platelet Count 195 X10^3/uL (150-400)
[2025-04-27 12:28] LABS: Alanine Aminotransferase 21 IU/L (<35); Albumin 4.4 g/dL (3.5-5.0); Albumin Globulin Ratio 1.5 (1.0-2.8); Alkaline Phosphatase 70 U/L (38-126); Blood Urea Nitrogen 14 mg/dL (7-17); Calcium 9.2 mg/dL (8.4-10.2); Carbon Dioxide 28 mmol/L (22-32); Chloride 105 mmol/L (98-107); Estimated Glomerular Filt Rate > 60 mL/min (>60); Globulin 3.0 g/dL (1.7-4.1); Glucose 84 mg/dL (70-99); HEMOLYSIS < 15 (0-50); Potassium 4.0 mmol/L (3.4-5.1); Sodium 139 mmol/L (137-145); Total Protein 7.4 g/dL (6.3-8.2)
[2025-04-27] MEDS: IBUPROFEN 600 MG TABLET PO (12:33)
[2025-04-27 13:02] LABS: Ammonia (NH3) < 9 umol/L (9-30)
[2025-04-27 13:16] LABS: Appearance Urine UA CLEAR; Bilirubin Urine UA NEGATIVE (NEGATIVE); Color Urine UA YELLOW; Glucose Urine UA NEGATIVE (Negative); Ketones Urine UA NEGATIVE (NEGATIVE); Leukocyte Esterase Urine UA NEGATIVE (NEGATIVE); Nitrite Urine UA NEGATIVE (Negative); Occult Blood Urine UA NEGATIVE (Negative); Protein Urine UA NEGATIVE (Negative); Specific Gravity Urine UA <=1.005 (1.000-1.035); Urobilinogen Urine UA 0.2 E.U./dL (0.2)
[2025-04-27 13:18] LABS: pH Urine UA 6.5 (4.5-8.0)
== END 2025-04-27 14:50 | disposition home or self-care (01) ==
PROVIDERS: Emergency Provider Family Medicine; Family Provider Family Medicine; PCP Family Medicine
DX: R55 Syncope and collapse (principal); S22.41XA Multiple fractures of ribs, right side, initial encounter for closed fracture; W07.XXXA Fall from chair, initial encounter
CPT/HCPCS: 70450; 71101; 80053; 81003; 82140; 85025; 93005; 93306; 99283; 99284